=== PATIENT | male | born 1985 | race Two or more races ===

== ENCOUNTER 2024-04-27 11:56 | Inpatient (IN) | payer OTHER ==
[2024-04-26 22:49] VITALS: PULSE 80; RESP 19; O2SAT 93
[~2024-04-27] VITALS: Ht 177.8 cm; Wt 110.9 kg
--- NOTE | 2024-04-27 13:03 | ED.PDOC ---
Back pain HPI HPI Comments A 38 YEAR OLD MALE PRESENTS TO THE ED WITH COMPLAINT OF RIGHT MIDDLE BACK PAIN [id number]. PT IS CURRENTLY PART OF [email or web address] CASE. PT WAS AT [employer] FOLLOW UP VISIT TODAY AND WAS REFERRED TO ED DUE TO MRI T-SPINE FINDING OF "MODERATE SPINAL CANAL STENOSIS. MASS EFFECT ON THE SPINE CORD/SPINE CORD COMPRESSION AND MODERATE NEUROFORAMINAL STENOSIS". MRI WAS DONE ON 03/22/2024. THE PATIENT DENIES ANY NUMBNESS, WEAKNESS, TINGLING SENSATION, URINARY/BOWEL INCONTINENCE. THERE ARE NO SIGNS AND SYMPTOMS OF CAUDA EQUINA. PATIENT DENIES FEVER, CHILLS, SHORTNESS OF BREATH, CHEST PAIN, ABDOMINAL PAIN, NAUSEA, VOMITING, HEADACHE, OR OTHER COMPLAINTS. NO OTHER SYMPTOMS OR MODIFYING FACTORS AT THIS TIME. PATIENT IS ALERT, ORIENTED X 4, AND HAS STEADY GAIT. Chief Complaint: Back Pain Time Seen by MD: 12:50 Reviewed Notes: Nurses Notes, Medications, Allergies Allergies: Coded Allergies: NO KNOWN ALLERGIES (Unverified , 04/27/24) Information Source: Patient Mode of Arrival: Ambulatory Timing: Months Duration: Since onset Location of Back pain: (R) Thoracic Severity: Mild Quality: Sharp Onset: Other Circumstance: Work Related History of: Chronic Back Pain Modifying Factors: Nothing Associated signs and symptoms: None Past Medical History PAST MEDICAL HISTORY: Denies Surgical History: Denies all surgeries Family History Family History: Unknown Social History Smoker: Non-Smoker Alcohol: Denies ETOH Use Drugs: Denies Drug Use Lives In: Home Constitutional: denies: chills, diaphoresis, fatigue, fever, malaise, sweats, weakness, others EENTM: denies: blurred vision, double vision, ear bleeding, ear discharge, ear drainage, ear pain, ear ringing, eye pain, eye redness, hearing loss, mouth pain, mouth swelling, nasal discharge, nose bleeding, nose congestion, nose pain, photophobia, tearing, throat pain, throat swelling, voice changes, others Respiratory: denies: cough, hemoptysis, orthopnea, SOB at rest, shortness of breath, SOB with excertion, stridor, wheezing, others Cardiovascular: denies: chest pain, dizzy spells, diaphoresis, Dyspnea on exertion, edema, irregular heart beat, left arm pain, lightheadedness, palpita tions, PND, syncope, others Gastrointestinal: denies: abdomen distended, abdominal pain, blood streaked paloma wels, constipated, diarrhea, dysphagia, difficulty swallowing, hematemesis, melena, nausea, poor appetite, poor fluid intake, rectal bleeding, rectal pain, vomiting, others Genitourinary: denies: burning, dysuria, flank pain, frequency, hematuria, incontinence, penile discharge, penile sore, pain, testicle pain, testicle swelling, urgency, others Neurological: denies: dizziness, fainting, headache, left sided numbness, left sided weakness, numbness, paresthesia, pre-existing deficit, right sided numbness, right sided weakness, seizure, speech problems, tingling, tremors, weakness, others Musculoskeletal: reports: back pain, muscle pain; denies: gout, joint pain, joint swelling, muscle stiffness, neck pain, others Integumetry: denies: bruises, change in color, change in hair/nails, dryness, laceration, lesions, lumps, rash, wounds, others Allergic/Immunocompromised: denies: Difficulty Healing, Frequent Infections, Hives, Itching, others Hematologic/Lymphatic: denies: anemia, blood clots, easy bleeding, easy bruising, swollen glands, others Endocrine: denies: excessive hunger, excessive sweating, excessive thirst, excessive urination, flushing, intolerance to cold, intolerance to heat, unexplained weight gain, unexplained weight loss, others Psychiatric: denies: anxiety, bipolar disorder, depression, hopeless, panic disorder, schizophrenia, sleepless, suicidal, others All Other Systems: Reviewed and Negative Physical Exam General Appearance: No Apparent Distress, Obese HEENT: Normal ENT Inspection, PERRL/EOMI, Pharynx Normal, TMs Normal Neck: Full Range of Motion, Non-Tender, Normal, Normal Inspection Respiratory: Chest Non-Tender, Lungs Clear, No Accessory Muscle Use, No Respiratory Distress, Normal Breath Sounds Cardiovascular: No Edema, No JVD, No Murmur, No Gallop, Normal Peripheral Pulses, Regular Rate/Rhythm Breast Exam: Deferred Gastrointestinal: No Organomegaly, Non Tender, No Pulsatile Mass, Normal Bowel Sounds, Soft Genitalia: Deferred Pelvic: Deferred Rectal: Deferred Extremities: No calf tenderness, Normal capillary refill, Normal inspection, Normal range of motion, Non-tender, No pedal edema Musculoskeletal : Location: Right Extremity Location: Back Apperance: Tenderness: Moderate (RIGHT MIDDLE BACK, NO BONY TENDERNESS, SWELLING AND DEFORMITY. 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 Was a procedure done?: No Back Pain Differential Dx Differential Diagnosis: Musculoskeletal Pain, Other (SPINAL STENOSIS/SPINAL CORD COMPRESSION ) X-Ray, Labs, Meds, VS Vital Signs Date Time Temp Pulse Resp B/P (MAP) Pulse Ox O2 Delivery O2 Flow Rate FiO2 04/27/24 19:28 98.4 89 19 147/83 (104) 95 98.4 04/27/24 12:44 98.6 113 16 154/87 (109) 96 98.6 04/27/24 12:44 113 16 96 Room Air 04/27/24 12:33 98.6 113 16 154/87 (109) 96 04/26/24 22:49 80 19 93 Room Air* 0 21 Lab Test 04/27/24 13:57 04/27/24 13:51 Range/Units White Blood Count 10.7 4.4-10.8 10^3/uL Red Blood Count 5.47 4.5-5.90 10^6/uL Hemoglobin 15.8 13.5-17.5 g/dL Hematocrit 46.5 41.0-53.0 % Mean Corpuscular Volume 85.0 80.0-100.0 fL Mean Corpuscular Hemoglobin 28.9 28.0-32.0 pg Mean Corpuscular Hemoglobin Concent 34.0 32.0-36.0 g/dL Red Cell Distribution Width 12.6 11.8-14.3 % Platelet Count 230 140-450 10^3/uL Mean Platelet Volume 10.3 6.9-10.8 fL Neutrophils (%) (Auto) 66.6 37.0-80.0 % Lymphocytes (%) (Auto) 24.1 10.0-50.0 % Monocytes (%) (Auto) 7.5 0.0-12.0 % Eosinophils (%) (Auto) 1.4 0.0-7.0 % Basophils (%) (Auto) 0.4 0.0-2.0 % Neutrophils # (Auto) 7.1 1.6-8.6 10 ^3/uL Lymphocytes # (Auto) 2.6 0.4-5.4 10 ^3/uL Monocytes # (Auto) 0.8 0-1.3 10 ^3/uL Eosinophils # (Auto) 0.1 0-0.8 10 ^3/uL Basophils # (Auto) 0 0-0.2 10 ^3/uL Nucleated Red Blood Cells 0.0 % Prothrombin Time 10.4 9.3-11.8 sec Prothrombin Time INR 0.98 0.9-1.15 Sodium Level 142 136-145 mmol/L Potassium Level 3.8 3.5-5.1 mmol/L Chloride Level 108 H 98-107 mmol/L Carbon Dioxide Level 27 20-31 mmol/L Anion Gap 7 5-15 Blood Urea Nitrogen 11 9-23 mg/dL Creatinine 0.91 0.700-1.30 mg/dL Glomerular Filtration Rate Calc 111 >90 mL/min BUN/Creatinine Ratio 12.1 10.0-20.0 Serum Glucose 111 H 74-106 mg/dL Calcium Level 9.8 8.7-10.4 mg/dL Urine Ketones Negative Negative X-Ray, Labs, Meds, VS Comment COURSE: EXTERNAL MEDICAL RECORDS REVIEWED: [facility] MRI REPORT FROM 03/22/2024 INDEPENDENT HISTORIANS: [NONE] SOCIAL DETERMINANTS OF HEALTH: [NONE] LABS ORDERED: CBC, BMP AND UA REVIEWED AND INTERPRETED RESULTS: YES IMAGING ORDERED: NONE TREATMENTS ORDERED: 0.9 NS 125MI/HOUR, TORADOL 30MG IVP AND SOLUMEDROL 125MG IVP PROCEDURES PERFORMED: NONE CRITICAL CARE TIME: NONE I HAVE DISCUSSED THE PATIENT WITH THE ATTENDING PHYSICIAN DR. HALL AND HE AGREES WITH THE PATIENT'S PLAN OF CARE AND DISPOSITION. GIVEN THE HISTORY AND PRESENT ILLNESS OF THE PATIENT, AFTER REVIEWING LABS, MRI IMAGING, AND COURSE OF TREATMENT. PATIENT WILL BE ADMITTED TO HOSPITAL FOR FURTHER EVALUATION AND TREATMENT. ATTEMPTED TO CALL CREDIT OPERATIONS SPECIALIST DR. DUMONT [phone] THREE TIMES, NO ANSWER AND UNABLE TO LEAVE A VOICEMAIL DUE TO VOICEMAIL BEING FULL. Time of 1ST Reevaluation: 13:15 Reevaluation 1ST: Unchanged Time of 2ND Reevaluation: 15:24 Reevaluation 2ND: Unchanged Consultation: Neurology (ATTEMPTED TO CALL CREDIT OPERATIONS SPECIALIST DR. DUMONT [phone] THREE TIMES, NO ANSWER AND UNABLE TO LEAVE A VOICEMAIL. ) Patient Education/Counseling: Diagnosis, Treatment Family Education/Counseling: Diagnosis, Treatment Departure 1 Departure Time of Disposition: 15:24 Impression: Primary Impression: Spinal cord mass Additional Impressions: Compression of spinal cord Spinal stenosis Qualified Codes: M48.05 - Spinal stenosis, thoracolumbar region Disposition: ADMITTED INPATIENT Admit to: Med Surg Condition: Serious Critical Care Note Critical Care Time?: No Stability Stability form required: Yes Unstable for transfer: Requires medication, ED Physician Assesment, Possible rapid decline Heart Score Heart Score: Heart Score Response (Comments) Value History N/A 0 EKG N/A 0 Age N/A 0 Risk Factors N/A 0 Troponin N/A 0 Total 0 I personally scribed for MARIA G QUEZADA ([email or web address]) on 04/27/24 at 13:03. Electronically submitted by Lissy Monroy ([employer]). I personally scribed for MARIA G QUEZADA ([email or web address]) on 04/27/24 at 13:50. Electronically submitted by Lissy Monroy ([employer]). I personally scribed for MARIA G QUEZADA ([email or web address]) on 04/27/24 at 13:56. Electronically submitted by Lissy Monroy ([employer]). I personally scribed for MARIA G QUEZADA ([email or web address]) on 04/27/24 at 15:15. Electronically submitted by Lissy Monroy ([employer]). MARIA G QUEZADA Apr 27, 2024 13:03
[2024-04-27 14:20] LABS: Basophils # (auto) 0 10 ^3/uL (0-0.2); Basophils % (auto) 0.4 % (0.0-2.0); Eosinophils # (auto) 0.1 10 ^3/uL (0-0.8); Eosinophils % (auto) 1.4 % (0.0-7.0); Hematocrit 46.5 % (41.0-53.0); Hemoglobin 15.8 g/dL (13.5-17.5); Lymphocytes # (auto) 2.6 10 ^3/uL (0.4-5.4); Lymphocytes % (auto) 24.1 % (10.0-50.0); Mean Corpuscular Hemoglobin 28.9 pg (28.0-32.0); Monocytes # (auto) 0.8 10 ^3/uL (0-1.3); Monocytes % (auto) 7.5 % (0.0-12.0); Neutrophils # (auto) 7.1 10 ^3/uL (1.6-8.6); Neutrophils % (auto) 66.6 % (37.0-80.0); Platelet Count (auto) 230 10^3/uL (140-450); Red Blood Cells 5.47 10^6/uL (4.5-5.90); Red Cell Distribution Width 12.6 % (11.8-14.3); White Blood Cell 10.7 10^3/uL (4.4-10.8)
[2024-04-27 14:26] LABS: Potassium 3.8 mmol/L (3.5-5.1); Sodium 142 mmol/L (136-145)
[2024-04-27 14:27] LABS: Anion Gap 7 (5-15); Calcium 9.8 mg/dL (8.7-10.4); Carbon Dioxide 27 mmol/L (20-31)
[2024-04-27 14:32] LABS: BUN/Creatinine Ratio 12.1 (10.0-20.0); Blood Urea Nitrogen 11 mg/dL (9-23)
[2024-04-27 14:34] LABS: INR 0.98 (0.9-1.15); Prothrombin Time 10.4 sec (9.3-11.8)
[2024-04-27 14:35] LABS: Chloride 108 mmol/L (98-107); Glucose 111 mg/dL (74-106)
[2024-04-27] MEDS: SODIUM CHLORIDE 0.9% 1,000 ML IV ONE (15:35)
[2024-04-27] MEDS: KETOROLAC TROMETH 30 MG/ML 1ML VIAL IV ONE (15:43)
[2024-04-27] MEDS: methylPREDNISolone SOD SUCC 125 MG/2 ML VL IV ONE (15:43)
[2024-04-27] MEDS ORDERED: CYCLOBENZAPRINE HCL 10 MG TAB PO PRN (21:45)
[2024-04-27] MEDS ORDERED: MORPHINE SULFATE INJ 2 MG/ml SYRG IV PRN (21:45)
[2024-04-27] MEDS ORDERED: NITROGLYCERIN 0.4 MG SL TAB SL PRN (21:45)
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
[2024-04-27] MEDS ORDERED: KETOROLAC TROMETH 30 MG/ML 1ML VIAL IV PRN (22:00)
[2024-04-27 22:49] VITALS: PULSE 80; RESP 19; O2SAT 93
[2024-04-28] MEDS: CYCLOBENZAPRINE HCL 10 MG TAB PO ONE (00:43)
[2024-04-28] MEDS: PANTOPRAZOLE 40 MG TAB PO ONE (08:15)
[2024-04-28 08:35] VITALS: BP 158/94; PULSE 91; RESP 18; TEMP 97.4; O2SAT 95
[2024-04-28] MEDS: predniSONE 20 MG TAB PO SCH (09:17)
[2024-04-28 13:00] VITALS: BP 142/83; PULSE 76; RESP 15; TEMP 97.7; O2SAT 93
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
[2024-04-28 21:00] VITALS: BP 138/77; PULSE 89; TEMP 97.9; O2SAT 94
[2024-04-28 23:05] VITALS: BP 140/84; PULSE 73; RESP 20; TEMP 98; O2SAT 94
[2024-04-29] VITALS (7 sets, daily range): BP systolic 125–134; BP diastolic 71–93; PULSE 72–92; RESP 17–20; TEMP 97.5–98.3; O2SAT 94–97
[2024-04-29] MEDS ORDERED: IBUP200C14 PO (00:42)
[2024-04-29] MEDS ORDERED: ACE650RS PR (00:43)
[2024-04-29] MEDS: PANTOPRAZOLE 40 MG TAB PO SCH (05:38)
[2024-04-29 11:43] LABS: Erythrocyte Sedimentation Rate 2 mm/hr (0-20)
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
[2024-04-30] VITALS (7 sets, daily range): BP systolic 119–138; BP diastolic 67–86; PULSE 61–89; RESP 16–18; TEMP 97.6–98.2; O2SAT 95–98
--- NOTE | 2024-04-30 11:35 | DVHPN2 ---
Subjective The patient is seen and examined at bedside. Still waiting for spine surgeon to see the patient. Reviewed: Care Plan, H&P, Labs, Medications, Previous Orders, Radiology Changes from previous H/P or p: No Changes Objective Vitals Vital Signs Date Time Temp Pulse Resp B/P (MAP) Pulse Ox O2 Delivery O2 Flow Rate FiO2 04/30/24 09:00 97.6 67 18 126/86 (99) 97 97.6 04/29/24 20:00 Room Air* 0 21 Intake/Output Intake and Output 04/30/24 07:00 Intake Total 2844 ml Output Total 1600 ml Balance 1244 ml Intake Oral 2844 ml Output Urine Total 1600 ml General Appearance: Alert, Oriented X3, Cooperative, No acute distress HEENT: Atraumatic Lungs: Clear to auscultation Cardiovascular: Regular rate Abdomen: Normal bowel sounds, Soft, No tenderness Neuro: Other (Nonfocal bilateral lower extremities. Knee reflexes symmetric. Motor and sensory symmetric) Medications Current Medications Medications Dose Ordered Sig/Terrell Route Start Time Stop Time Status Last Admin Dose Admin Nitroglycerin 0.4 mg Q5MINP PRN SL 04/27/24 21:45 Morphine Sulfate 2 mg Q30M PRN IV 04/27/24 21:45 Cyclobenzaprine HCl 5 mg Q8HPRN PRN PO 04/27/24 21:45 Prednisone 40 mg DAILY PO 04/28/24 10:00 04/30/24 10:17 40 MG Ketorolac Tromethamine 15 mg Q6HPRN PRN IV 04/27/24 22:00 05/02/24 21:59 Pantoprazole Sodium 40 mg DAILY@0600 PO 04/29/24 06:00 04/30/24 06:09 40 MG Laboratory Results Laboratory Tests 04/27/24 13:57 Urinalysis Test 04/27/24 13:51 Urine Ketones Negative (Negative) Labs and/or images reviewed: Labs reviewed by me Assessment/Plan Assessment/Plan [id number] left and right foraminal stenosis, at level of C7-T1 Mild spinal cord compression at level of T1-T2 Moderate spinal cord canal stenosis at T1-T2 Moderate spinal stenosis at lumbar region Back pain likely due to spinal cord compression. Continuing current manage Continuing with muscle relaxant: cyclobenzaprine 5 mg p.o. Q eight p.r.n. needed. Continuing Pain medication Waiting for spine/orthopedic evaluation, patient has been given steroid for inflammation. Plan discussed with: Patient Date of Service: Apr 30, 2024 Billing Provider: KORTNEY VIERA MD Common Visit Codes: [id number] INP/OBS CARE(HIGH) KORTNEY VIERA MD Apr 30, 2024 11:35
[2024-05-01 01:03] VITALS: BP 120/64; PULSE 76; RESP 17; TEMP 97.4; O2SAT 95
[2024-05-01 05:05] VITALS: BP 123/81; PULSE 66; RESP 18; TEMP 97.6; O2SAT 95
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
[2024-05-01 09:00] VITALS: BP 137/92; PULSE 70; RESP 17; TEMP 97.8; O2SAT 96
--- NOTE | 2024-05-01 11:20 | DVHPN2 ---
Subjective The patient is seen and examined at bedside. Still waiting for spine surgeon to see the patient. Reviewed: Care Plan, H&P, Labs, Medications, Previous Orders, Radiology Objective Vitals Vital Signs Date Time Temp Pulse Resp B/P (MAP) Pulse Ox O2 Delivery O2 Flow Rate FiO2 05/01/24 09:00 97.8 70 17 137/92 (107) 96 97.8 05/01/24 08:00 Room Air* 0 21 Intake/Output Intake and Output 05/01/24 07:00 Intake Total 2974 ml Balance 2974 ml Intake Oral 2974 ml # Voids 7 # Bowel Movements 2 General Appearance: Alert, Oriented X3, Cooperative, No acute distress HEENT: Atraumatic Lungs: Clear to auscultation Cardiovascular: Regular rate Abdomen: Normal bowel sounds, Soft, No tenderness Neuro: Other (Nonfocal bilateral lower extremities. Knee reflexes symmetric. Motor and sensory symmetric) Medications Current Medications Medications Dose Ordered Sig/Terrell Route Start Time Stop Time Status Last Admin Dose Admin Nitroglycerin 0.4 mg Q5MINP PRN SL 04/27/24 21:45 Morphine Sulfate 2 mg Q30M PRN IV 04/27/24 21:45 Cyclobenzaprine HCl 5 mg Q8HPRN PRN PO 04/27/24 21:45 Prednisone 40 mg DAILY PO 04/28/24 10:00 05/01/24 08:51 40 MG Ketorolac Tromethamine 15 mg Q6HPRN PRN IV 04/27/24 22:00 05/02/24 21:59 Pantoprazole Sodium 40 mg DAILY@0600 PO 04/29/24 06:00 05/01/24 05:45 40 MG Laboratory Results Laboratory Tests 04/27/24 13:57 Urinalysis Test 04/27/24 13:51 Urine Ketones Negative (Negative) Assessment/Plan Assessment/Plan [id number] left and right foraminal stenosis, at level of C7-T1 Mild spinal cord compression at level of T1-T2 Moderate spinal cord canal stenosis at T1-T2 Moderate spinal stenosis at lumbar region Back pain likely due to spinal cord compression. Continuing current manage Continuing with muscle relaxant: cyclobenzaprine 5 mg p.o. Q eight p.r.n. needed. Continuing Pain medication Waiting for spine/orthopedic evaluation, patient has been given steroid for inflammation. KORTNEY VIERA MD May 01, 2024 11:20
[2024-05-01] MEDS ORDERED: CYCL-611 PO (12:25)
[2024-05-01] MEDS ORDERED: PRED20TA2 PO (12:25)
--- NOTE | 2024-05-01 12:25 | DVHDS2 ---
Discharge Summary Date of Admission Apr 27, 2024 at 21:44 Labs/Diagnostic Data: Laboratory Results Test 04/29/24 10:17 04/27/24 13:57 04/27/24 13:51 Erythrocyte Sedimentation Rate 2 mm/hr (0-20) C-Reactive Protein High Sensitivity 0.24 mg/dL (<1.0) White Blood Count 10.7 10^3/uL (4.4-10.8) Red Blood Count 5.47 10^6/uL (4.5-5.90) Hemoglobin 15.8 g/dL (13.5-17.5) Hematocrit 46.5 % (41.0-53.0) Mean Corpuscular Volume 85.0 fL (80.0-100.0) Mean Corpuscular Hemoglobin 28.9 pg (28.0-32.0) Mean Corpuscular Hemoglobin Concent 34.0 g/dL (32.0-36.0) Red Cell Distribution Width 12.6 % (11.8-14.3) Platelet Count 230 10^3/uL (140-450) Mean Platelet Volume 10.3 fL (6.9-10.8) Neutrophils (%) (Auto) 66.6 % (37.0-80.0) Lymphocytes (%) (Auto) 24.1 % (10.0-50.0) Monocytes (%) (Auto) 7.5 % (0.0-12.0) Eosinophils (%) (Auto) 1.4 % (0.0-7.0) Basophils (%) (Auto) 0.4 % (0.0-2.0) Neutrophils # (Auto) 7.1 10 ^3/uL (1.6-8.6) Lymphocytes # (Auto) 2.6 10 ^3/uL (0.4-5.4) Monocytes # (Auto) 0.8 10 ^3/uL (0-1.3) Eosinophils # (Auto) 0.1 10 ^3/uL (0-0.8) Basophils # (Auto) 0 10 ^3/uL (0-0.2) Nucleated Red Blood Cells 0.0 % Prothrombin Time 10.4 sec (9.3-11.8) Prothrombin Time INR 0.98 (0.9-1.15) Sodium Level 142 mmol/L (136-145) Potassium Level 3.8 mmol/L (3.5-5.1) Chloride Level 108 mmol/L (98-107) Carbon Dioxide Level 27 mmol/L (20-31) Anion Gap 7 (5-15) Blood Urea Nitrogen 11 mg/dL (9-23) Creatinine 0.91 mg/dL (0.700-1.30) Glomerular Filtration Rate Calc 111 mL/min (>90) BUN/Creatinine Ratio 12.1 (10.0-20.0) Serum Glucose 111 mg/dL (74-106) Calcium Level 9.8 mg/dL (8.7-10.4) Urine Ketones Negative (Negative) Other Laboratory Tests 04/27/24 13:57 Discharge Statement: "Patient was advised to return to the ER or call 911 if any headaches, dizziness, shortness of breath, chest pain, abdominal pain, bleeding, fevers, or worsening of medical condition. Patient was counseled about treatment plan, medications, possible side effects, patientverbalized understanding. All questions were answered to the best of my ability. This discharge took greater then 30 minutes in planning, reviewing documentation, counseling the patient, and discussing with other team members." ASSESSMENT ASSESSMENT Assessment KORTNEY VIERA MD May 01, 2024 12:25
--- NOTE | 2024-05-01 12:27 | DVHDS2 ---
Discharge Summary Date of Admission Apr 27, 2024 at 21:44 Date of Discharge: May 01, 2024 Labs/Diagnostic Data: Laboratory Results Test 04/29/24 10:17 04/27/24 13:57 04/27/24 13:51 Erythrocyte Sedimentation Rate 2 mm/hr (0-20) C-Reactive Protein High Sensitivity 0.24 mg/dL (<1.0) White Blood Count 10.7 10^3/uL (4.4-10.8) Red Blood Count 5.47 10^6/uL (4.5-5.90) Hemoglobin 15.8 g/dL (13.5-17.5) Hematocrit 46.5 % (41.0-53.0) Mean Corpuscular Volume 85.0 fL (80.0-100.0) Mean Corpuscular Hemoglobin 28.9 pg (28.0-32.0) Mean Corpuscular Hemoglobin Concent 34.0 g/dL (32.0-36.0) Red Cell Distribution Width 12.6 % (11.8-14.3) Platelet Count 230 10^3/uL (140-450) Mean Platelet Volume 10.3 fL (6.9-10.8) Neutrophils (%) (Auto) 66.6 % (37.0-80.0) Lymphocytes (%) (Auto) 24.1 % (10.0-50.0) Monocytes (%) (Auto) 7.5 % (0.0-12.0) Eosinophils (%) (Auto) 1.4 % (0.0-7.0) Basophils (%) (Auto) 0.4 % (0.0-2.0) Neutrophils # (Auto) 7.1 10 ^3/uL (1.6-8.6) Lymphocytes # (Auto) 2.6 10 ^3/uL (0.4-5.4) Monocytes # (Auto) 0.8 10 ^3/uL (0-1.3) Eosinophils # (Auto) 0.1 10 ^3/uL (0-0.8) Basophils # (Auto) 0 10 ^3/uL (0-0.2) Nucleated Red Blood Cells 0.0 % Prothrombin Time 10.4 sec (9.3-11.8) Prothrombin Time INR 0.98 (0.9-1.15) Sodium Level 142 mmol/L (136-145) Potassium Level 3.8 mmol/L (3.5-5.1) Chloride Level 108 mmol/L (98-107) Carbon Dioxide Level 27 mmol/L (20-31) Anion Gap 7 (5-15) Blood Urea Nitrogen 11 mg/dL (9-23) Creatinine 0.91 mg/dL (0.700-1.30) Glomerular Filtration Rate Calc 111 mL/min (>90) BUN/Creatinine Ratio 12.1 (10.0-20.0) Serum Glucose 111 mg/dL (74-106) Calcium Level 9.8 mg/dL (8.7-10.4) Urine Ketones Negative (Negative) Other Laboratory Tests 04/27/24 13:57 Final Diagnosis/Problems List spinal cord stenosis Discharge Disposition: Home Discharge Instruct/Medications Diet: Regular Activity: No Restrictions, As Tolerated Follow Up/Referral: pcp 1-2 week spine surgeon as outpatient per schedule, Dr Muhammad Discharge Statement: "Patient was advised to return to the ER or call 911 if any headaches, dizziness, shortness of breath, chest pain, abdominal pain, bleeding, fevers, or worsening of medical condition. Patient was counseled about treatment plan, medications, possible side effects, patientverbalized understanding. All questions were answered to the best of my ability. This discharge took greater then 30 minutes in planning, reviewing documentation, counseling the patient, and discussing with other team members." ASSESSMENT ASSESSMENT Assessment spinal cord stenosis KORTNEY VIERA MD May 01, 2024 12:27
[2024-05-01 13:00] VITALS: BP 150/95; PULSE 84; RESP 18; TEMP 98.5; O2SAT 94
== END 2024-05-01 15:48 | disposition home or self-care (01) | DRG 552 ==
LOC: ER 11:56 → OVERFLOW 21:44 → CENTRAL 04-28 22:50
PROVIDERS: ADMIT Student in an Organized Health Care Education/Training Program; ATTEND Internal Medicine
DX: M48.061 Spinal stenosis, lumbar region without neurogenic claudication (principal); M51.06 Intervertebral disc disorders with myelopathy, lumbar region; M51.05 Intervertebral disc disorders with myelopathy, thoracolumbar region; M48.04 Spinal stenosis, thoracic region; M48.02 Spinal stenosis, cervical region
CPT/HCPCS: 36415; 80048; 85025; 85610; 85652; 86141; 86850; 86900; 86901; G0378; J1885